=== PATIENT | female | born 1995 | race Caucasian/White ===

== ENCOUNTER 2017-03-11 17:00 | Emergency (ER) | payer OTHER ==
[2017-03-11 20:54] LABS: HEMOGLOBIN 11.2 gm/dl (12.3-15.3); RED BLOOD COUNT 3.75 M/UL (4.00-5.10); WHITE BLOOD COUNT 10.4 K/UL (4.5-11.0)
[2017-03-11 21:11] LABS: BUN/CREATININE RATIO 12 (0-10)
== END 2017-03-11 22:55 | disposition home or self-care (01) ==
LOC: ER1 17:00
PROVIDERS: Physician Assistant
DX: O99.89 Other specified diseases and conditions complicating pregnancy, childbirth and the puerperium (principal); R00.2 Palpitations; R10.2 Pelvic and perineal pain; Z3A.32 32 weeks gestation of pregnancy; Z88.5 Allergy status to narcotic agent
CPT/HCPCS: 36415; 80053; 81001; 83690; 83735; 84439; 84443; 84484; 85025; 87086; 93005; 99285

== ENCOUNTER 2017-03-11 22:36 | Outpatient (CLI) | payer OTHER | END 2017-03-11 23:35 | disposition home or self-care (01) | LOC: GENOP 22:36 | DX: Z34.83 Encounter for supervision of other normal pregnancy, third trimester (principal); Z3A.32 32 weeks gestation of pregnancy | CPT/HCPCS: G0463 ==

== ENCOUNTER 2017-04-25 13:55 | Outpatient (CLI) | payer OTHER | END 2017-04-25 16:54 | disposition home or self-care (01) | LOC: GENOP 13:55 | DX: O99.89 Other specified diseases and conditions complicating pregnancy, childbirth and the puerperium (principal); R10.9 Unspecified abdominal pain; Z3A.32 32 weeks gestation of pregnancy | CPT/HCPCS: 81001; G0463 ==

== ENCOUNTER 2017-04-29 15:33 | Outpatient (CLI) | payer OTHER | END 2017-04-29 18:46 | disposition home or self-care (01) | LOC: GENOP 15:33 | DX: O42.92 Full-term premature rupture of membranes, unspecified as to length of time between rupture and onset of labor (principal); Z3A.37 37 weeks gestation of pregnancy | CPT/HCPCS: 81001; 83518; G0463 ==

== ENCOUNTER 2017-05-05 05:50 | Inpatient (IN) | payer OTHER ==
[~2017-05-05] VITALS: Ht 162.6 cm; Wt 88.9 kg
[2017-05-05 06:36] LABS: HEMOGLOBIN 11.5 gm/dl (12.3-15.3); RED BLOOD COUNT 4.03 M/UL (4.00-5.10); WHITE BLOOD COUNT 13.3 K/UL (4.5-11.0)
[2017-05-06 03:08] LABS: HEMOGLOBIN 10.5 gm/dl (12.3-15.3)
[2017-05-07] MEDS ORDERED: COLACE 100MG C100 MG PO (09:00)
== END 2017-05-07 08:23 | disposition home or self-care (01) | DRG 775 ==
LOC: OB 05:50
PROVIDERS: Obstetrics & Gynecology; ADMIT Obstetrics & Gynecology
PROC: 3E033VJ Introduction of Other Hormone into Peripheral Vein, Percutaneous Approach (ICD-10-PCS; principal; 2017-05-05)
PROC: 10907ZC Drainage of Amniotic Fluid, Therapeutic from Products of Conception, Via Natural or Artificial Opening (ICD-10-PCS; principal; 2017-05-05)
PROC: 4A1H7CZ Monitoring of Products of Conception, Cardiac Rate, Via Natural or Artificial Opening (ICD-10-PCS; principal; 2017-05-05)
PROC: 10E0XZZ Delivery of Products of Conception, External Approach (ICD-10-PCS; principal; 2017-05-05)
PROC: 10H07YZ Insertion of Other Device into Products of Conception, Via Natural or Artificial Opening (ICD-10-PCS; principal; 2017-05-05)
DX: O26.893 Other specified pregnancy related conditions, third trimester (principal); O62.2 Other uterine inertia; L29.9 Pruritus, unspecified; O48.0 Post-term pregnancy; Z3A.40 40 weeks gestation of pregnancy; Z37.0 Single live birth; Z82.49 Family history of ischemic heart disease and other diseases of the circulatory system; Z83.3 Family history of diabetes mellitus; Z87.891 Personal history of nicotine dependence; Z87.74 Personal history of (corrected) congenital malformations of heart and circulatory system
CPT/HCPCS: 36415; 51702; 81001; 82800; 85014; 85018; 85025; 90715; J2210; J2590; J2795; J3010; J3430; J7120